=== PATIENT | female | born 1980 | race Two or more races ===

== ENCOUNTER → 2024-03-13 | Outpatient (BNVA) | payer MEDICAID, SELFPAY | END | disposition home or self-care (01) | PROVIDERS: PCP Nurse Practitioner Family; Referring Provider Nurse Practitioner Family; Visit Provider Nurse Practitioner Family | DX: Z12.39 Encounter for other screening for malignant neoplasm of breast (principal); B38.1 Chronic pulmonary coccidioidomycosis | CPT/HCPCS: 99214 ==

== ENCOUNTER → 2024-04-10 | Outpatient (BNVA) | payer MEDICAID, SELFPAY | END | disposition home or self-care (01) | PROVIDERS: PCP Nurse Practitioner Family; Referring Provider Nurse Practitioner Family; Visit Provider Nurse Practitioner Family | DX: Z71.2 Person consulting for explanation of examination or test findings (principal); E78.5 Hyperlipidemia, unspecified; E55.9 Vitamin D deficiency, unspecified; E03.9 Hypothyroidism, unspecified | CPT/HCPCS: 99213 ==

== ENCOUNTER → 2024-04-14 | Outpatient (CLI) | payer MEDICAID, SELFPAY ==
--- NOTE | 2024-04-14 15:00 | XR_ITS ---
Examination: Screening digital mammography, bilateral Computer aided detection 3-D breast Tomosynthesis, bilateral Date and time of exam: April 14, 2024 1456 hours Compared to mammograms dating to April 11, 2023 Indication: Screening Technique: Nonmagnified MLO, CC views of the breasts to been obtained, reconstructed from 3-D Tomosynthesis images. R2 computer aided detection program utilized for evaluation of suspicious masses and/or abnormal calcifications. 3-D Tomosynthesis images obtained. Findings: The breasts are heterogeneously dense, which may obscure small masses 14 mm focal asymmetry upper outer left breast Benign calcifications Impression: BI-RADS Category 0: Incomplete: Need additional imaging evaluation 14 mm focal asymmetry upper outer left breast, recommend follow-up spot tomographic views of this asymmetry as well as left breast sonography to complete the workup
== END | disposition home or self-care (01) ==
PROVIDERS: PCP Nurse Practitioner Family; Referring Provider Nurse Practitioner Family; Visit Provider Nurse Practitioner Family
DX: Z12.31 Encounter for screening mammogram for malignant neoplasm of breast (principal); R92.8 Other abnormal and inconclusive findings on diagnostic imaging of breast; N64.89 Other specified disorders of breast
CPT/HCPCS: 77063; 77067

== ENCOUNTER → 2024-04-21 | Outpatient (BNVA) | payer MEDICAID, SELFPAY | END | disposition home or self-care (01) | PROVIDERS: PCP Nurse Practitioner Family; Referring Provider Nurse Practitioner Family; Visit Provider Nurse Practitioner Family | DX: R92.8 Other abnormal and inconclusive findings on diagnostic imaging of breast (principal); Z71.2 Person consulting for explanation of examination or test findings | CPT/HCPCS: 99215 ==

== ENCOUNTER → 2024-04-23 | Outpatient (BNVA) | payer MEDICAID, SELFPAY | END | disposition home or self-care (01) | PROVIDERS: PCP Nurse Practitioner Family; Referring Provider Nurse Practitioner Family; Visit Provider Nurse Practitioner Family | DX: Z23 Encounter for immunization (principal) | CPT/HCPCS: 90471; 90686; 99213 ==

== ENCOUNTER → 2024-05-15 | Outpatient (BNVA) | payer MEDICAID, SELFPAY | END | disposition home or self-care (01) | PROVIDERS: PCP Nurse Practitioner Family; Referring Provider Nurse Practitioner Family; Visit Provider Nurse Practitioner Family | DX: N92.0 Excessive and frequent menstruation with regular cycle (principal); R10.2 Pelvic and perineal pain | CPT/HCPCS: 81001; 96372; 99215; J1885 ==

== ENCOUNTER → 2024-05-16 | Outpatient (BNVA) | payer MEDICAID, SELFPAY | END | disposition home or self-care (01) | PROVIDERS: PCP Nurse Practitioner Family; Referring Provider Nurse Practitioner Family; Visit Provider Nurse Practitioner Family | DX: Z00.01 Encounter for general adult medical examination with abnormal findings (principal); R10.2 Pelvic and perineal pain; E78.5 Hyperlipidemia, unspecified; R73.03 Prediabetes; B38.1 Chronic pulmonary coccidioidomycosis; E89.0 Postprocedural hypothyroidism; E66.3 Overweight; Z68.25 Body mass index [BMI] 25.0-25.9, adult; Z12.11 Encounter for screening for malignant neoplasm of colon | CPT/HCPCS: 99215 ==

== ENCOUNTER → 2024-07-11 | Outpatient (CLI) | payer MEDICAID, SELFPAY ==
--- NOTE | 2024-07-11 11:30 | XR_ITS ---
Examination: Pelvic ultrasound, transabdominal, complete Technique: Transabdominal ultrasound of the pelvis performed using grayscale imaging Date and time of exam: July 11, 2024 1118 hrs. Indications: Vaginal bleeding several months irregular heavy menses Findings: Uterus 15.2 cm vascular fundal mass 5.2 cm posterior uterine body mass 4.4 cm left uterine body mass 5.8 cm Endometrial stripe 0.9 cm Right ovary 3.6 cm arterial flow 21 mm follicular cyst Left ovary 2.9 cm arterial flow Impression: Multiple large vascular uterine masses, recommend transvaginal pelvic sonography follow-up
== END | disposition home or self-care (01) ==
LOC: CDIM 10:51
PROVIDERS: PCP Nurse Practitioner Family; Referring Provider Nurse Practitioner Family; Visit Provider Nurse Practitioner Family
DX: R19.09 Other intra-abdominal and pelvic swelling, mass and lump (principal)
CPT/HCPCS: 76856

== ENCOUNTER → 2024-07-14 | Outpatient (BNVA) | payer MEDICAID, SELFPAY | END | disposition home or self-care (01) | PROVIDERS: PCP Nurse Practitioner Family; Referring Provider Nurse Practitioner Family; Visit Provider Nurse Practitioner Family | DX: Z71.2 Person consulting for explanation of examination or test findings (principal); N85.9 Noninflammatory disorder of uterus, unspecified; Z85.850 Personal history of malignant neoplasm of thyroid; Z12.11 Encounter for screening for malignant neoplasm of colon; R10.2 Pelvic and perineal pain; N92.0 Excessive and frequent menstruation with regular cycle | CPT/HCPCS: 99214 ==

== ENCOUNTER → 2024-07-23 | Outpatient (BNVA) | payer MEDICAID, SELFPAY | END | disposition home or self-care (01) | PROVIDERS: PCP Nurse Practitioner Family; Referring Provider Nurse Practitioner Family; Visit Provider Nurse Practitioner Family | DX: E03.9 Hypothyroidism, unspecified (principal); N92.0 Excessive and frequent menstruation with regular cycle; R19.09 Other intra-abdominal and pelvic swelling, mass and lump; Z76.0 Encounter for issue of repeat prescription | CPT/HCPCS: 99212; G0463 ==

== ENCOUNTER → 2024-07-25 | Outpatient (BNVA) | payer MEDICAID, SELFPAY | END | disposition home or self-care (01) | PROVIDERS: PCP Nurse Practitioner Family; Referring Provider Nurse Practitioner Family; Visit Provider Nurse Practitioner Family | DX: Z12.11 Encounter for screening for malignant neoplasm of colon (principal); Z71.2 Person consulting for explanation of examination or test findings | CPT/HCPCS: 99212; G0463 ==

== ENCOUNTER → 2024-07-29 | Outpatient (BNVA) | payer MEDICAID, SELFPAY | END | disposition home or self-care (01) | PROVIDERS: PCP Nurse Practitioner Family; Referring Provider Nurse Practitioner Family; Visit Provider Nurse Practitioner Family | DX: Z71.2 Person consulting for explanation of examination or test findings (principal); N92.0 Excessive and frequent menstruation with regular cycle; N85.8 Other specified noninflammatory disorders of uterus; J30.9 Allergic rhinitis, unspecified | CPT/HCPCS: 99213 ==

== ENCOUNTER → 2024-08-20 | Outpatient (CLI) | payer MEDICAID, SELFPAY ==
--- NOTE | 2024-08-20 09:30 | XR_ITS ---
Examination: Transvaginal ultrasound of the pelvis, complete Technique: Transvaginal sonographic images pelvis performed using chun scale imaging Exam date and time: August 20, 2024 0920 hours INDICATIONS: Pelvic pain and vaginal bleeding irregular heavy menses 5 months FINDINGS: Uterus 15.5 cm endometrial stripe 16mm Anterior uterine mass with vascularity 3.2 x 2.8 x 2.4 cm Left lateral uterine body mass 8.6 x 8.1 x 6.0 cm with vascularity Ovaries obscured by bowel gas IMPRESSION: Large vascular uterine body masses Consider MRI pelvis follow-up pre and postcontrast as differential would include malignant neoplasms of the uterus.
== END | disposition home or self-care (01) ==
PROVIDERS: PCP Nurse Practitioner Family; Referring Provider Nurse Practitioner Family; Visit Provider Nurse Practitioner Family
DX: R19.09 Other intra-abdominal and pelvic swelling, mass and lump (principal)
CPT/HCPCS: 76830

== ENCOUNTER → 2024-08-27 | Outpatient (BNVA) | payer MEDICAID, SELFPAY | END | disposition home or self-care (01) | PROVIDERS: PCP Nurse Practitioner Family; Referring Provider Nurse Practitioner Family; Visit Provider Nurse Practitioner Family | DX: Z71.2 Person consulting for explanation of examination or test findings (principal); Z01.812 Encounter for preprocedural laboratory examination; R19.00 Intra-abdominal and pelvic swelling, mass and lump, unspecified site; N92.0 Excessive and frequent menstruation with regular cycle | CPT/HCPCS: 99215 ==

== ENCOUNTER 2024-09-02 09:54 | Outpatient (AMB) | payer MEDICAID, SELFPAY ==
[2024-09-02 10:11] VITALS: BP 113/73; PULSE 67; RESP 18; TEMP 36.7; O2SAT 98; BMI 28.5
--- NOTE | 2024-09-02 10:11 | AMB.OBVISIT ---
Vital Signs 09/02/24 10:11 Height 1.62 m Height Method Stated Weight 75.013 kg Weight Measurement Method Standing Scale BMI 28.5 BP 113/73 Blood Pressure Source Automatic Cuff Blood Pressure Location Left Upper Arm Position Sitting Respiration 18 Pulse 67 Pulse Source Monitor Temp 98.0 F Temp Source Oral Pulse Oximetry (%) 98 Oxygen Delivery Method Room Air Allergies/Home Meds Allergies & Medications Allergies polyethylene glycol 3350 (From Miralax) Allergy (Unknown, Verified 09/08/24 11:18) Hives SEAFOOD Allergy (Intermediate, Uncoded 09/08/24 11:18) Swelling of Lip/Tongue/Throat Medication Reconciliation diphenhydramine HCl 50 mg tablet (Benadryl Allergy) 50 mg PO Q6H PRN allergic reaction #30 tabs 04/10/24 [Rx Confirmed 09/08/24] ibuprofen 600 mg tablet 600 mg PO Q8H PRN pain #30 tabs 07/23/24 [Rx Confirmed 09/08/24] levothyroxine 150 mcg tablet 150 mcg PO QDAY #90 tabs 07/23/24 [Rx Confirmed 09/08/24] fexofenadine 180 mg tablet (Mallorie Allergy) 180 mg PO Q24H #90 tabs 07/29/24 [Rx Confirmed 09/08/24] Intake Visit Data Collection New Patient or Established: Established Patient (seen at [facility] within 3 years) Reason for Visit:: REFERRAL Seen by Clinical Staff ONLY (RN/MA): No Aircraft Electronics Technical Officer Required: Yes Aircraft Electronics Technical Officer's name/title: KISHORE BAIRES /MEDICAL ASSISTANTMarva Do You Feel Safe at Home: Yes Authorities Contacted: N/A PCP or OBGYN visit in last 3 months: Yes Date of Last PCP or OBGYN visit: 08/27/24 Hx Now: Yes Are you currently on any form of Control: No Pain Present Currently: No Pain Scale Used: Hedrick-Lieberman/Numerical Pain scale:: 0 Smoking Status Smoking Status: Never smoker Questionnaires Covid-19 Vaccine Questionnaire Has patient been vacinated for Covid-19 Have you been vacinated for Covid-19: Yes PHQ-9 PHQ-2 Over the last 2 weeks, how often have you been bothered by any of the following problems? 1. Little interest or pleasure in doing things: not at all 2. Feeling down, depressed, or hopeless: not at all Total score: 0 PHQ-9 3. Trouble falling or staying asleep, or sleeping too much: Not at all 4. Feeling tired or having little energy: Not at all 5. Poor appetite or overeating: Not at all 6. Feeling bad about yourself - or that you are a failure or have let yourself or your family down: Not at all 7. Trouble concentrating on things, such as reading the newspaper or watching television: Not at all 8. Moving or speaking so slowly that other people could have noticed? - Or the opposite - being so fidgety or restless that you have been moving around a lot more than usual: not at all 9. Thoughts that you would be better off or of hurting yourself in some way: Not at all Total score: 0 If you checked off any problems, how difficult have these problems made it for you to do your work, take care of things at home, or get along with other people?: not difficult at all Source: Developed by Drs. Panfilo Muñoz, Cristin Royal, Peter Bertrand and colleagues, with an educational ceci from [email or web address]. Depression screen completed yes Social History Living Situation History Lives With: Spouse Housing: House Tobacco History Smoking Status: Never smoker Second Hand Smoke Exposure: No Alcohol History Alcohol Intake: Never Substance Use History Substance Use: PT DENIES ANY SUBSTANCE USE. 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 The patient reports a history of increased cramping and pelvic pain for the first two days of menses, typically lasting three to four days. She has been using ibuprofen for pain relief but states it has not been very effective. Ms. Devine mentions that she underwent a procedure related to uterine myomas approximately 5 years ago, which is confirmed in her medical record as a hysteroscopy and NovaSure ablation performed on August 21, 2017. The patient reports that this was initially successful, but she is now experiencing a recurrence of symptoms. Ms. Devine's last visit to an sr. payroll manager was 5 years ago. She denies any other gynecologic complaints. The patient's menstrual cycles are described as heavy, though the exact nature and extent of the bleeding are not specified in the transcript. Medical History - Hypothyroidism - Prediabetes - Hyperlipidemia - Longstanding history of pelvic pain and menorrhagia Surgical History - Hysteroscopy and NovaSure endometrial ablation on August 21, 2017 - Unspecified procedure related to uterine myomas, approximately 5 years ago Medications and Supplements - Ibuprofen - Used for menstrual cramping and pelvic pain - Without much relief Review of Systems Genitourinary: Positive for heavy menstrual cycles, pelvic pain, increased cramping during first two days of menses. Negative for other gynecologic complaints. Laboratory, Imaging, and Diagnostic Test Results - Pelvic ultrasound (07/11/2024): - Uterus: 15.2 cm - Fundal mass: 5.2 cm, vascular - Posterior uterine body mass: 4.4 cm - Left uterine body mass: 5.8 cm - Endometrial stripe: 0.9 cm - Right ovary: 3.6 cm with arterial flow - Left ovary: 2.9 cm with arterial flow - Mammogram (04/14/2024): BIRADS category 0, needing additional imaging evaluation - Transvaginal ultrasound (08/20/2024): - Uterus: 15.5 cm - Endometrial stripe: 16 mm - Anterior uterine mass: 3.2 x 2.8 x 2.4 cm, with vascularity - Left lateral uterine body mass: 8.6 x 8.1 x 6 cm, with vascularity - Ovaries: obscured by gas Exam General Limitations: no limitations General Appearance: alert, in no apparent distress, comfortable, cooperative, healthy appearing, well developed and well groomed Head Head exam: atraumatic, normocephalic and normal inspection Eye Eye exam: Present normal appearance, PERRL and EOMI ENT ENT exam: Present normal exam, normal oropharynx and mucous membranes moist Neck Neck exam: Present normal inspection, full ROM and trachea midline Chest Chest inspection: Present normal inspection and symmetric chest wall rise Resp Respiratory exam: Present normal lung sounds bilaterally Card Cardiovascular exam: Present regular rate, normal rhythm and normal heart sounds Abdominal Abdominal exam: Present soft and normal bowel sounds Extremities Extremities exam: Present normal inspection and full ROM Back Back exam: Present normal inspection and full ROM Neuro Neurological exam: Present alert, oriented X3 and CN II-XII intact Psych Psychiatric exam: Present normal affect and normal mood Skin Skin exam: Present warm, dry, intact and normal color Office Procedures OB Clinic LOC & Office Proc's Nursing/Assessment Patient Status: Established Patient OB Clinic Nursing Assessment: Medication Reconciliation, Update PMH in EMR and Vital Signs OB Clinic Coordination of Care: Consent,records obtained, informed consent, Education Simp Pt/Fam, Lab and Imaging orders, Results/Orders obtained and Staff clarify orders Special Needs: Language special needs Established Patient Charge Established Patient Point Assignment: 80 Established Patient Point Charge: EP Level 3 (80-115) Assessment & Plan Diagnosis / Problem List (1) Menorrhagia: Status: Acute (2) Uterine mass: Status: Acute (3) Intramural leiomyoma of uterus: Status: Acute Plan Kayley Devine, a 44-year-old female with a history of hypothyroidism, prediabetes, hyperlipidemia, and longstanding pelvic pain, presents with heavy menstrual cycles and pelvic pain. Uterine fibroids with menorrhagia and pelvic pain Assessment: Patient has a significantly enlarged uterus measuring 15.5 cm (normal ~8 cm) with multiple fibroids, including a left lateral uterine body mass measuring 8.6 x 8.1 x 6 cm. She reports increased cramping and pelvic pain for the first two days of menses, typically lasting three to four days. The patient underwent hysteroscopy and NovaSure endometrial ablation in 2018, which was initially successful but appears to have lost effectiveness after approximately 3 years. Current symptoms suggest breakthrough bleeding. Given the size of the uterus, multiple fibroids, and failure of previous less invasive treatment, hysterectomy is indicated as the definitive treatment. Plan: - Perform open abdominal hysterectomy - Preserve ovaries to maintain hormonal function and reduce risk of menopausal symptoms, cardiovascular disease, and dementia - Obtain preoperative blood tests - Submit for insurance approval - Schedule surgery once approved - Provide patient education on: - Surgical procedure (open abdominal approach) - Risks, benefits, and alternatives of hysterectomy - Postoperative expectations and recovery - Follow up to review blood test results and initiate surgical process Abnormal mammogram Assessment: Patient's last mammogram from April 14, 2024, was reported as BI-RADS category 0, indicating the need for additional imaging evaluation. Plan: - Follow up on additional imaging as recommended by mammogram report - Ensure completion of further breast evaluation Cervical cancer screening Assessment: No Pap smears on record, indicating a potential gap in cervical cancer screening. Plan: - Schedule Pap smear if not contraindicated by upcoming surgery - Review cervical cancer screening history and update as necessary
== END 2024-09-02 10:41 | disposition home or self-care (01) ==
LOC: HODSOBC 09:54
PROVIDERS: PCP Nurse Practitioner Family; Referring Provider Nurse Practitioner Family; Supervising Provider Obstetrics & Gynecology; Visit Provider Obstetrics & Gynecology
DX: D25.1 Intramural leiomyoma of uterus (principal); N92.0 Excessive and frequent menstruation with regular cycle; E03.9 Hypothyroidism, unspecified; E78.5 Hyperlipidemia, unspecified; Z79.890 Hormone replacement therapy
CPT/HCPCS: 99213; G0463

== ENCOUNTER → 2024-09-08 | Outpatient (BNVA) | payer MEDICAID, SELFPAY | END | disposition home or self-care (01) | PROVIDERS: PCP Nurse Practitioner Family; Referring Provider Nurse Practitioner Family; Visit Provider Nurse Practitioner Family | DX: Z71.2 Person consulting for explanation of examination or test findings (principal); N85.8 Other specified noninflammatory disorders of uterus; N92.0 Excessive and frequent menstruation with regular cycle; R10.2 Pelvic and perineal pain | CPT/HCPCS: 99212; G0463 ==

== ENCOUNTER 2024-09-18 13:58 | Outpatient (AMB) | payer MEDICAID, SELFPAY ==
--- NOTE | 2024-09-18 14:20 | AMB.GYNCLNOT ---
Vital Signs 09/18/24 14:33 Height 1.62 m Height Method Stated Weight 74.389 kg Weight Measurement Method Standing Scale BMI 28.3 BP 137/75 H Blood Pressure Source Automatic Cuff Blood Pressure Location Left Upper Arm Position Sitting Respiration 18 Pulse 75 Pulse Source Monitor Temp 98.0 F Temp Source Oral Allergies/Home Meds Allergies & Medications Allergies polyethylene glycol 3350 (From Miralax) Allergy (Unknown, Verified 10/08/24 13:40) Hives SEAFOOD Allergy (Intermediate, Uncoded 10/08/24 13:40) Swelling of Lip/Tongue/Throat Medication Reconciliation ibuprofen 600 mg tablet 600 mg PO Q8H PRN pain #30 tabs 07/23/24 [Rx Confirmed 10/08/24] fexofenadine 180 mg tablet (Mallorie Allergy) 180 mg PO Q24H #90 tabs 07/29/24 [Rx Confirmed 10/08/24] ergocalciferol (vitamin D2) 1,250 mcg (50,000 unit) capsule 50,000 unit PO QWEEK 12 weeks #12 caps 10/08/24 [Rx] levothyroxine 150 mcg tablet 150 mcg PO QDAY #90 tabs 10/08/24 [Rx] Intake Visit Data Collection New Patient or Established: Established Patient (seen at [facility] within 3 years) Reason for Visit:: LAB RESULTS Seen by Clinical Staff ONLY (RN/MA): No Division Road Supervisor Required: Yes Division Road Supervisor's name/title: KISHORE BAIRES MA Do You Feel Safe at Home: Yes Authorities Contacted: N/A PCP or OBGYN visit in last 3 months: Yes Date of Last PCP or OBGYN visit: 09/02/24 Hx Now: No Are you currently on any form of Control: No Pain Present Currently: No Pain Scale Used: Hedrick-Lieberman/Numerical Pain scale:: 0 Smoking Status Smoking Status: Never smoker [place] history [place] History Menstrual regularity: irregular Flow: heavy Monthly: Yes Currently sexually active: No 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 1. Little interest or pleasure in doing things: not at all 2. Feeling down, depressed, or hopeless: not at all Total score: 0 PHQ-9 3. Trouble falling or staying asleep, or sleeping too much: Not at all 4. Feeling tired or having little energy: Not at all 5. Poor appetite or overeating: Not at all 6. Feeling bad about yourself - or that you are a failure or have let yourself or your family down: Not at all 7. Trouble concentrating on things, such as reading the newspaper or watching television: Not at all 8. Moving or speaking so slowly that other people could have noticed? - Or the opposite - being so fidgety or restless that you have been moving around a lot more than usual: not at all 9. Thoughts that you would be better off or of hurting yourself in some way: Not at all Total score: 0 If you checked off any problems, how difficult have these problems made it for you to do your work, take care of things at home, or get along with other people?: not difficult at all Source: Developed by Drs. Panfilo Muñoz, Cristin Royal, Peter Bertrand and colleagues, with an educational ceci from [employer]. Depression screen completed yes Social History Living Situation History Lives With: Spouse Housing: House Tobacco History Smoking Status: Never smoker Second Hand Smoke Exposure: No Alcohol History Alcohol Intake: Never Substance Use History Substance Use: PT DENIES ANY SUBSTANCE USE. Domestic Abuse History Do You Feel Safe at Home: Yes History of Present Illness HPI Narrative Presents for review of lab results. Has a history of leiomyoma of uterus, ovarian cyst, and perimenopausal symptoms with abnormal uterine bleeding that has been unresponsive to medications. She reports symptoms remain unchanged since last visit. Continues to experience pain related to fibroid, unresponsive to pain medication. Patient expresses desire to proceed with surgery, understanding she will require an open operation to remove the uterus due to fibroid and cyst. She has been informed the procedure will involve an incision similar to a with approximately one month recovery time. The patient has been waiting for an extended period for this intervention, with persistent pain significantly impacting her quality of life. She understands that even strong pain medications are ineffective due to the fibroid's lack of blood supply, preventing medication from reaching the source of pain. Exam General General Appearance: alert, in no apparent distress and healthy appearing Head Head exam: atraumatic Neck Neck exam: Present normal inspection and trachea midline Chest Chest inspection: Present normal inspection and symmetric chest wall rise External exam: Present normal external exam; Absent tenderness Neuro Neurological exam: Present oriented X3 Psych Psychiatric exam: Present normal affect and normal mood Office Procedures OB Clinic LOC & Office Proc's Nursing/Assessment Patient Status: Established Patient OB Clinic Nursing Assessment: Medication Reconciliation, Update PMH in EMR and Vital Signs OB Clinic Coordination of Care: Education Complex Pt/Fam, Consent,records obtained, informed consent, Lab and Imaging orders, Results/Orders obtained and Staff clarify orders Special Needs: Language special needs Established Patient Charge Established Patient Point Assignment: 85 Established Patient Point Charge: EP Level 3 (80-115) Assessment & Plan Diagnosis / Problem List (1) Intramural leiomyoma of uterus: Status: Acute (2) Menorrhagia: Status: Acute Plan Leiomyoma of Uterus and Ovarian Cyst: - Known history of uterine leiomyoma and ovarian cyst - Persistent symptoms, particularly pain, unresponsive to medication - Recent lab results: * Hemoglobin: 12.7 * FSH: 5.2 (indicating normal cycles, not yet in menopause) * CEA: 1.0 - Additional hormone tests to rule out tumors were negative Plan: - Proceed with open hysterectomy * Remove uterus and associated structures * Preserve ovaries to maintain hormonal function - Inform patient of surgical approach (similar to incision) - Expect one-month recovery period - Initiate insurance approval process for surgery - Fast-track surgery scheduling due to persistent pain - Provide patient with copies of lab results Perimenopausal Symptoms with Abnormal Uterine Bleeding: - Experiencing perimenopausal symptoms and abnormal uterine bleeding - FSH level of 5.2 indicates patient is not yet in menopause - Symptoms likely related to uterine leiomyoma rather than hormonal changes Plan: - Monitor hormonal status post-hysterectomy - Reassess perimenopausal symptoms after surgery
[2024-09-18 14:33] VITALS: BP 137/75; PULSE 75; RESP 18; TEMP 36.7; BMI 28.3
== END 2024-09-18 15:05 | disposition home or self-care (01) ==
LOC: HODSOBC 13:58
PROVIDERS: PCP Nurse Practitioner Family; Referring Provider Nurse Practitioner Family; Supervising Provider Obstetrics & Gynecology; Visit Provider Obstetrics & Gynecology
DX: D25.1 Intramural leiomyoma of uterus (principal); N92.4 Excessive bleeding in the premenopausal period; E03.9 Hypothyroidism, unspecified; Z87.42 Personal history of other diseases of the female genital tract; Z79.890 Hormone replacement therapy; Z91.013 Allergy to seafood; Z88.8 Allergy status to other drugs, medicaments and biological substances
CPT/HCPCS: 99213; G0463

== ENCOUNTER → 2024-10-08 | Outpatient (BNVA) | payer MEDICAID, SELFPAY | END | disposition home or self-care (01) | PROVIDERS: PCP Nurse Practitioner Family; Referring Provider Nurse Practitioner Family; Visit Provider Nurse Practitioner Family | DX: N39.0 Urinary tract infection, site not specified (principal); E55.9 Vitamin D deficiency, unspecified; Z71.2 Person consulting for explanation of examination or test findings; E89.0 Postprocedural hypothyroidism; B95.1 Streptococcus, group B, as the cause of diseases classified elsewhere | CPT/HCPCS: 99212; G0463 ==

== ENCOUNTER → 2024-10-27 | Outpatient (BNVA) | payer MEDICAID, SELFPAY | END | disposition home or self-care (01) | PROVIDERS: PCP Nurse Practitioner Family; Referring Provider Nurse Practitioner Family; Visit Provider Nurse Practitioner Family | DX: Z71.2 Person consulting for explanation of examination or test findings (principal); B95.5 Unspecified streptococcus as the cause of diseases classified elsewhere | CPT/HCPCS: 99212; G0463 ==

== ENCOUNTER 2024-12-10 11:08 | Outpatient (AMB) | payer MEDICAID, SELFPAY ==
[2024-12-10 11:48] VITALS: BP 136/80; PULSE 76; RESP 16; TEMP 36.2; O2SAT 98; BMI 27.9
--- NOTE | 2024-12-10 11:48 | AMB.GYNCLNOT ---
Vital Signs 12/10/24 11:48 Height 1.62 m Height Method Stated Weight 73.255 kg Weight Measurement Method Standing Scale BMI 27.9 BP 136/80 H Blood Pressure Source Automatic Cuff Blood Pressure Location Left Upper Arm Position Sitting Respiration 16 Pulse 76 Pulse Source Monitor Temp 97.2 F Temp Source Oral Pulse Oximetry (%) 98 Oxygen Delivery Method Room Air Allergies/Home Meds Allergies & Medications Allergies polyethylene glycol 3350 (From Miralax) Allergy (Unknown, Verified 12/11/24 07:00) Hives SEAFOOD Allergy (Intermediate, Uncoded 12/11/24 07:00) Swelling of Lip/Tongue/Throat Medication Reconciliation ibuprofen 600 mg tablet 600 mg PO Q8H PRN pain #30 tabs 07/23/24 [Rx Confirmed 12/10/24] levothyroxine 150 mcg tablet 150 mcg PO QDAY #90 tabs 10/27/24 [Rx Confirmed 12/10/24] fexofenadine 180 mg tablet (Mallorie Allergy) 180 mg PO QDAY 12/05/24 [History Confirmed 12/10/24] fluticasone propionate 50 mcg/actuation nasal spray,suspension 2 spray intranasal DAILY PRN allergy symptoms 12/05/24 [History Confirmed 12/10/24] Intake Visit Data Collection New Patient or Established: Established Patient (seen at [facility] within 3 years) Reason for Visit:: OBC Seen by Clinical Staff ONLY (RN/MA): No Raw Mill Operator Required: No Do You Feel Safe at Home: Yes Authorities Contacted: N/A PCP or OBGYN visit in last 3 months: Yes Date of Last PCP or OBGYN visit: 12/05/24 Hx Now: Yes Are you currently on any form of Control: No Pain Present Currently: Yes Pain Scale Used: Hedrick-Lieberman/Numerical Pain scale:: 0 Smoking Status Smoking Status: Never smoker Medical Office Scheduler history Medical Office Scheduler History Menstrual regularity: regular Flow: normal Monthly: Yes How many days does period last: 5 Age at menarche: 11 Menopausal: No 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 1. Little interest or pleasure in doing things: not at all 2. Feeling down, depressed, or hopeless: not at all Total score: 0 PHQ-9 3. Trouble falling or staying asleep, or sleeping too much: Not at all 4. Feeling tired or having little energy: Not at all 5. Poor appetite or overeating: Not at all 6. Feeling bad about yourself - or that you are a failure or have let yourself or your family down: Not at all 7. Trouble concentrating on things, such as reading the newspaper or watching television: Not at all 8. Moving or speaking so slowly that other people could have noticed? - Or the opposite - being so fidgety or restless that you have been moving around a lot more than usual: not at all 9. Thoughts that you would be better off or of hurting yourself in some way: Not at all Total score: 0 If you checked off any problems, how difficult have these problems made it for you to do your work, take care of things at home, or get along with other people?: not difficult at all Source: Developed by Drs. Panfilo Muñoz, Cristin Royal, Peter Bertrand and colleagues, with an educational ceci from [employer]. Depression screen completed yes Social History Living Situation History Lives With: Spouse Housing: House Tobacco History Smoking Status: Never smoker Second Hand Smoke Exposure: No Alcohol History Alcohol Intake: Never Substance Use History Substance Use: PT DENIES ANY SUBSTANCE USE. Domestic Abuse History Do You Feel Safe at Home: Yes History of Present Illness HPI Narrative Kayley Devine, a 44-year-old woman, presents for a preoperative visit prior to a total abdominal hysterectomy scheduled for tomorrow. The patient has a history of uterine leiomyoma and ovarian cyst, with persistent symptoms, particularly pain, that have been unresponsive to medication. The patient has been experiencing irregular bleeding. Her FSH level was 5.2, indicating a non-menopausal state. The decision for surgery was made due to the persistence of symptoms and their impact on her quality of life. The patient expresses some anxiety about the upcoming procedure, which is a normal reaction to impending surgery. The hysterectomy is planned to be performed through an abdominal incision, described as similar to but smaller than a incision. The patient has completed her pre-admission process and is scheduled to arrive at the hospital at 6:30 AM for her 8:30 AM surgery. Post-operatively, she is expected to stay in the hospital for approximately two nights, though some patients are discharged after one night. She is a 44-year-old female. The patient is employed, as evidenced by discussion of medical leave forms for up to 2 months. ROS: Genitourinary: Positive for irregular bleeding. Exam General General Appearance: alert, in no apparent distress and healthy appearing Head Head exam: atraumatic Neck Neck exam: Present normal inspection and trachea midline Chest Chest inspection: Present normal inspection and symmetric chest wall rise External exam: Present normal external exam; Absent tenderness Neuro Neurological exam: Present oriented X3 Psych Psychiatric exam: Present normal affect and normal mood Office Procedures OB Clinic LOC & Office Proc's Nursing/Assessment Patient Status: Established Patient OB Clinic Nursing Assessment: Medication Reconciliation, Update PMH in EMR and Vital Signs OB Clinic Coordination of Care: Education Complex Pt/Fam, Consent,records obtained, informed consent, Education Simp Pt/Fam, Lab and Imaging orders and Staff clarify orders Special Needs: Heart tones Established Patient Charge Established Patient Point Assignment: 125 Established Patient Point Charge: EP Level 4 (120-155) Assessment & Plan Diagnosis / Problem List (1) Intramural leiomyoma of uterus: Status: Acute (2) Menorrhagia: Status: Acute Plan Leiomyoma of uterus and ovarian cyst: - Persistent symptoms with pain unresponsive to medication and irregular bleeding. - FSH level 5.2 indicating non-menopausal state. - Conservative management has been ineffective, necessitating surgical intervention. Plan: - Proceed with total abdominal hysterectomy tomorrow (12/11/2024) at 8:30 AM. - Patient to arrive at 6:30 AM for pre-operative preparation. - Informed consent obtained: discussed surgical procedure, including abdominal incision. - Anticipate 2-night hospital stay post-surgery with possibility of 1-night stay if recovery progresses well. - Utilize dissolvable sutures for wound closure. - Apply waterproof dressing post-operatively. - Schedule 2-week follow-up appointment for dressing removal. - Complete disability paperwork for up to 2 months of leave. - Pre-operative instructions: ? NPO after 10:00 PM tonight, including medications. - Post-operative instructions: ? Patient may shower with waterproof dressing in place.
== END 2024-12-10 12:13 | disposition home or self-care (01) ==
LOC: HODSOBC 11:08
PROVIDERS: PCP Nurse Practitioner Family; Referring Provider Nurse Practitioner Family; Supervising Provider Obstetrics & Gynecology; Visit Provider Obstetrics & Gynecology
DX: D25.1 Intramural leiomyoma of uterus (principal); N92.0 Excessive and frequent menstruation with regular cycle; N83.209 Unspecified ovarian cyst, unspecified side; E03.9 Hypothyroidism, unspecified; Z88.8 Allergy status to other drugs, medicaments and biological substances; Z91.013 Allergy to seafood; Z79.890 Hormone replacement therapy
CPT/HCPCS: 99214; G0463

== ENCOUNTER 2024-12-11 06:25 | Inpatient (IN) | payer MEDICAID, SELFPAY ==
[2024-12-05 08:09] VITALS: BMI 29.2
[2024-12-05 09:03] LABS: Basophils # (Auto) 0.0 Thou/mm3 (0.0-0.2); Basophils % (Auto) 1 % (0-2.5); Eosinophils # (Auto) 0.5 Thou/mm3 (0.0-0.5); Eosinophils % (Auto) 7 % (0-10); Hematocrit 36.9 % (36.0-46.0); Hemoglobin 12.1 g/dL (12.0-16.0); Immature Granulocytes Auto 0.01 Thou/mm3 (0.00-0.00); Lymphocytes # (Auto) 0.8 Thou/mm3 (1.0-4.8); Lymphocytes % (Auto) 12 % (10-50); Mean Corpuscular HGB Conc 32.8 g/dl (31.0-37.0); Mean Corpuscular Hemoglobin 29.3 pg (25.0-35.0); Mean Corpuscular Volume 89 fL (80-100); Monocytes # (Auto) 0.5 Thou/mm3 (0.0-0.8); Monocytes % (Auto) 7 % (0-12); Neutrophils # (Auto) 5.1 Thou/mm3 (1.8-7.7); Neutrophils % (Auto) 74 % (37-80); Nucleated Red Blood Cell # 0.00 Thou/mm3 (0.00-0.00); Nucleated Red Blood Cell % 0 /100 WBC (0); Platelet Count 177 Thou/mm3 (140-440); RDW Standard Deviation 44.2 fL (36.4-46.3); Red Blood Count 4.13 Miln/mm3 (4.00-5.20); White Blood Count 7.0 Thou/mm3 (3.6-11.0)
[2024-12-05 09:18] LABS: COVID-19 Antigen (In-House) Negative (Negative)
[2024-12-05 09:31] LABS: HCG,Qualitative Serum Negative
[2024-12-05 09:42] LABS: Alanine Aminotransferase 8 U/L (10-49); Albumin, Serum 4.3 gm/dL (3.5-5.0); Albumin/Globulin Ratio 2.0 (1.2-2.2); Alkaline Phosphatase 67 U/L (46-116); Anion Gap 10 (7-16); Aspartate Amino Transferase 15 U/L (0-34); BUN/Creatinine Ratio 13 Ratio (12-20); Bilirubin,Total 0.7 mg/dL (0.3-1.2); Blood Urea Nitrogen 9 mg/dL (9-23); Calcium 8.8 mg/dL (8.3-10.6); Calcium (Corrected) 8.8 mg/dL (8.5-10.1); Carbon Dioxide 26.0 mMol/L (20.0-31.0); Chloride 107 mMol/L (98-107); Creatinine (Component) 0.7 mg/dL (0.6-1.3); Estimated Creatinine Clearance 97.2 mL/min (>60); Globulin 2.2 gm/dL (2.3-3.5); Glucose 92 mg/dL (74-106); Osmolality,Calculated 283 (275-295); Potassium 3.7 mMol/L (3.4-5.1); Sodium 143 mMol/L (136-145); Total Protein 6.5 gm/dL (5.7-8.2); eGFR > 60 See Note
[2024-12-11] VITALS (20 sets, daily range): BP systolic 131–185; BP diastolic 71–100; PULSE 61–80; RESP 16–20; TEMP 36.1–36.7; O2SAT 96–100; BMI 28.3
[2024-12-11] MEDS: RINGERS LACTATED 1000 ML 1,000 ML 20 ML IV (06:59)
--- NOTE | 2024-12-11 09:50 | ESOP_ITS ---
Operative Note - PERSONAL PROTECTION SPECIALIST Procedure Date of procedure: 12/11/24 Procedure Performed: Total abdominal hysterectomy with bilateral salpingectomy Indication: 44-year-old with abnormal uterine bleeding and symptomatic leiomyoma measuring 20 weeks in size. Anesthesia type: General Procedure description: Informed consent was obtained and the patient was taken to the operating room. Identity was confirmed using two patient identifiers. General anesthesia was administered, and the patient was positioned supine. The abdomen and perineum were prepped and draped in the usual sterile fashion. A Mao catheter was placed for continuous drainage. A surgical timeout was performed. A Pfannenstiel skin incision was made and carried through the subcutaneous layer. The rectus fascia was identified and incised, and the fascial incisions were extended bilaterally in the usual fashion. The rectus muscles were bluntly, and peritoneal entry was achieved bluntly as well. Upon entry into the peritoneal cavity, the uterus was noted to be grossly enlarged, extending to the level of the umbilicus. An Mukesh retractor was placed. The uterus was grasped with a double-tooth tenaculum and exteriorized through the incision. The adnexal structures were identified, and dissection was initiated on the right side, beginning with the round ligament, followed by the utero-ovarian ligament, and then the fallopian tube. Dissection was carried down the right side of the uterus in standard fashion, consistent with prior technique. The bladder flap was developed and dissected free to expose the lower uterine segment. Dissection was carried down the side of the uterus until the uterine artery was identified and sealed using the ENSEAL device. Multiple collateral vessels were noted, clamped with Alessio clamps and suture ligated using 0-Vicryl. Dissection was then carried out on the left side in the same manner. Once the level of the cervix was reached, a stab incision was made at the anterior cervicovaginal junction, and dissection was carried circumferentially using the ENSEAL device until the uterus was completely amputated. The vaginal angles were grasped with Janie clamps, and the vaginal cuff was closed using 0- Vicryl in a running locked fashion. Additional [id number] sutures were placed to control bleeding along the cuff and surrounding tissues. The pelvis was copiously irrigated, and all fluid was suctioned out. Surgicel powder was applied over dissection sites. All bowel packing and the Mukesh retractor were removed. The rectus muscle was noted to have multiple bleeding points, all of which were controlled using electrocautery. The rectus fascia was closed using 0-Vicryl in a running fashion. The subcutaneous tissue was closed using 0-Plain gut. The skin was closed using 4-0 Monocryl in a subcuticular fashion. A total of 30 cc of bupivacaine with epinephrine was injected into the abdominal wall for postoperative analgesia. A Dermabond Prineo dressing was applied along with a pressure dressing and abdominal binder. The patient was extubated and transferred to the recovery room in stable and awake condition. She tolerated the procedure well. All instrument, sponge, and lap counts were correct ?2. Specimen: uterus, left tube and right tube Estimated blood loss (ml): 200 Complications: none Surgical staff Operation Date: 12/11/24 08:30 Case Staff Anesthesiologist: Jose Juan Taylor well service derrick worker: Cris Hamm Diagnosis Discharge Diagnosis (1) Intramural leiomyoma of uterus: Status: Acute Problem List Completed Was Problem List Reviewed/Reconciled?: Yes
--- NOTE | 2024-12-11 10:02 | SUR.PHASEI ---
Arrived to recovery bay 5 via bed. Report received from Lin RICHEY and Dr. Taylor. Dr. Taylor at bedside monitoring VS, aware of high BP. States he will come back and medicated for high BP. Otherwise, she is resting with eyes open. Responding to questions and commands appropriately. Dressing to abd. C/D/I. Abdominal binder in place. Nikki pad cleand and dry at this time. Mao catheter secured to right thigh. No s/o distress at this time. No c/o pain.
--- NOTE | 2024-12-11 10:10 | SUR.PHASEI ---
Dr. Taylor at bedside medicating for BP with Hydralazine. States he will come back to monitor BP.
[2024-12-11] MEDS: HYDROmorphone 1 MG/ML PCA SYRINGE 30ML PCA (10:40)
[2024-12-11] MEDS: SODIUM CHLORIDE 0.9% 1000 ML 1,000 ML 200 ML IV ×2 (10:47→20:23)
--- NOTE | 2024-12-11 10:53 | SUR.PHASEII ---
Resting with eyes closed. No c/o pain or discomfort. No s/o distress. Nikki pad and abd. dressing remain C/D/I. miller cath draining clear yellow urine.
--- NOTE | 2024-12-11 11:00 | SUR.PHASEI ---
Assumed care of pt., received report on pt. s/p total abd. hysterectomy from Tania RICHEY, pt. is resting with eyes closed, responds to verbal commands, VSS, no c/o pain or nausea at this time, dressing to lower abd. CDI, abd. binder in place.
--- NOTE | 2024-12-11 11:30 | SUR.PHASEI ---
Pt. transferred to room 350 via bed with all of belongings, VSS, no c/o pain or nausea at this time. Dressing to abd. CDI, abdominal binder in place, no active bleeding or redness noted, miller catheter in place, IV flushed and saline locked, pt. was educated on OPERATOR ENGINEER pump and button, verbalized understanding. Mckenzie RICHEY assumed care of pt.
[2024-12-11] MEDS: ACETAMINOPHEN IVPB 1,000 MG/100 ML VIAL 250 MG IV ×3 (12:54→23:22)
[2024-12-11] MEDS: ONDANSETRON INJ 2 MG/ML INJ 2 ML 4 MG IV (16:00)
[2024-12-11] MEDS: PROMETHAZINE INJ 25 MG in SODIUM CHLORIDE 0.9% 50 ML IV (19:13)
[2024-12-12] VITALS (7 sets, daily range): BP systolic 118–140; BP diastolic 70–79; PULSE 62–82; RESP 15–20; TEMP 36.1–36.6; O2SAT 96–99
[2024-12-12] MEDS: LEVOTHYROXINE SODIUM 25 MCG TABLET 150 MCG PO (05:34)
[2024-12-12] MEDS: SODIUM CHLORIDE 0.9% 1000 ML 1,000 ML 200 ML IV ×2 (05:37→14:23)
[2024-12-12] MEDS: ACETAMINOPHEN IVPB 1,000 MG/100 ML VIAL 250 MG IV (05:37)
[2024-12-12 05:56] LABS: Basophils # (Auto) 0.0 Thou/mm3 (0.0-0.2); Basophils % (Auto) 0 % (0-2.5); Eosinophils # (Auto) 0.0 Thou/mm3 (0.0-0.5); Eosinophils % (Auto) 0 % (0-10); Hematocrit 32.5 % (36.0-46.0); Hemoglobin 10.7 g/dL (12.0-16.0); Immature Granulocytes Auto 0.03 Thou/mm3 (0.00-0.00); Lymphocytes # (Auto) 0.9 Thou/mm3 (1.0-4.8); Lymphocytes % (Auto) 8 % (10-50); Mean Corpuscular HGB Conc 32.9 g/dl (31.0-37.0); Mean Corpuscular Hemoglobin 29.5 pg (25.0-35.0); Mean Corpuscular Volume 90 fL (80-100); Monocytes # (Auto) 1.0 Thou/mm3 (0.0-0.8); Monocytes % (Auto) 8 % (0-12); Neutrophils # (Auto) 10.1 Thou/mm3 (1.8-7.7); Neutrophils % (Auto) 84 % (37-80); Nucleated Red Blood Cell # 0.00 Thou/mm3 (0.00-0.00); Nucleated Red Blood Cell % 0 /100 WBC (0); Platelet Count 193 Thou/mm3 (140-440); RDW Standard Deviation 43.4 fL (36.4-46.3); Red Blood Count 3.63 Miln/mm3 (4.00-5.20); White Blood Count 12.0 Thou/mm3 (3.6-11.0)
[2024-12-12 06:12] LABS: Anion Gap 10 (7-16); BUN/Creatinine Ratio 8 Ratio (12-20); Blood Urea Nitrogen 5 mg/dL (9-23); Calcium 7.6 mg/dL (8.3-10.6); Carbon Dioxide 26.4 mMol/L (20.0-31.0); Chloride 106 mMol/L (98-107); Creatinine (Component) 0.6 mg/dL (0.6-1.3); Estimated Creatinine Clearance 112.8 mL/min (>60); Glucose 109 mg/dL (74-106); Osmolality,Calculated 281 (275-295); Potassium 3.4 mMol/L (3.4-5.1); Sodium 142 mMol/L (136-145); eGFR > 60 See Note
[2024-12-12] MEDS: DOCUSATE SOD 100 MG CAPSULE PO (08:54)
[2024-12-12] MEDS: KETOROLAC INJ 30 MG/ML VIAL IVP ×3 (12:31→23:56)
[2024-12-12] MEDS: LACTULOSE SYRUP 20 GM/30 ML UDC 10 GM PO ×2 (14:21→21:03)
--- NOTE | 2024-12-12 16:27 | PC.SS ---
SS met with patient regarding her d/c plan. Pt is alert/oriented. Pt was admitted for [facility] [id number]. Pt confirmed demographic and contact information is correct on facesheet. Pt resides with and kids. Pt ambulates independently without assistance or DME. Pt is ok with all ADLs. Pt named her , Cholo England medical decision maker if she is unable. Patient?s choice is to return home upon d/c. Pt states she is not diabetic and is not on dialysis. will provide transportation home. D/C plan: Return home Next of Kin: Cholo England, , phone# [phone] PCP: Fe Poole in [place] Address: Correct on facesheet
--- NOTE | 2024-12-12 16:33 | ESPR_ITS ---
Documentation for date of: 12/12/24 COMMUNITY RECREATION COORDINATOR Subjective Subjective Interval history: Patient doing well this morning. Pain is adequately controlled on the current regimen. No incisional complaints, no chest pain, shortness of breath, breathing difficulties. Ambulating, tolerating p.o., Adequate UOP Exam Vital Signs Temp Pulse Resp BP Pulse Ox O2 Del Method O2 Flow Rate 97.4 F 62 19 118/76 98 Room Air 2 12/12/24 08:00 12/12/24 08:00 12/12/24 08:00 12/12/24 08:00 12/12/24 08:00 12/12/24 08:00 12/12/24 07:07 Constitutional Constitutional: no acute distress Routine HEENT Exam Head: Present normocephalic and atraumatic Eye: Present EOMI and PERRL ENT: Present mucous membranes moist Routine Neck Exam Neck: Present supple and trachea midline Routine Respiratory Exam Respiratory: Present chest non-tender, lungs clear, normal breath sounds and no resp distress Routine Cardiovascular Exam Cardiovascular: Present RRR Routine Abdominal Exam Abdominal: Present soft and normoactive bowel sounds Routine Extremities Exam Extremities: Present full ROM Routine Skin Exam Skin: Present intact and dry Routine Neurological Exam Neurological: Present alert, oriented X3 and CN II-XII intact Routine Psychiatric Exam Psychiatric: Present normal affect and normal thought process Urinary Catheter Management Cath placed during this visit: yes, but has since been removed by the nurse Removal date: 12/12/24 Removal time: 06:00 COMMUNITY RECREATION COORDINATOR - PN: Obj Data Labs 12/12/24 04:20 12/12/24 04:20 Labs: Laboratory Results - last 24 hr 12/12/24 04:20 WBC 12.0 H D RBC 3.63 L Hgb 10.7 L Hct 32.5 L MCV 90 MCH 29.5 MCHC 32.9 RDW Std Deviation 43.4 Plt Count 193 Neut % (Auto) 84 H Lymph % (Auto) 8 L [place] % (Auto) 8 Eos % (Auto) 0 Baso % (Auto) 0 Neut # (Auto) 10.1 H Lymph # (Auto) 0.9 L [place] # (Auto) 1.0 H Eos # (Auto) 0.0 Baso # (Auto) 0.0 Immature Gran # (Auto) 0.03 H Absolute Nucleated RBC 0.00 Immature Gran % 0 Nucleated RBC % 0 Sodium 142 Potassium 3.4 Chloride 106 Carbon Dioxide 26.4 Anion Gap 10 BUN 5 L Creatinine 0.6 Estim Creat Clear Calc 112.8 eGFR > 60 BUN/Creatinine Ratio 8 L Glucose 109 H Calculated Osmolality 281 Calcium 7.6 L COMMUNITY RECREATION COORDINATOR - A/P Assessment and plan (1) Intramural leiomyoma of uterus: Status: Acute Assessment and plan: POD#1 1. Continue routine post operative care 2. Transition to PO meds. 3. Encourage to ambulate 4. Anticipate discharge home tomorrow. 5. Home care instructions reviewed Postoperative Procedures: Procedures Operation Date: 12/11/24 08:30 Actual Procedure Side Surgeon p Hysterectomy, Abdominal with BSO Sadiq Crandall MD Time Spent With Patient Time: Total time spent is greater than 50% in coordination of care (as documented) at patient's floor/unit and/or counseling patient: Time with patient: less than 15 minutes
--- NOTE | 2024-12-12 17:47 | PC.NURSE ---
pt urinated at 1000 on 12/12/24 after the miller was discontinued at 0600. Pt didnt complaint of pain or discomfort.
[2024-12-12] MEDS: HYDROcodone/APAP 5/325 TABLET 2 TAB PO (19:18)
[2024-12-13] VITALS (8 sets, daily range): BP systolic 105–131; BP diastolic 69–81; PULSE 66–81; RESP 15–98; TEMP 36.4–36.8; O2SAT 96–99; BMI 28.8
[2024-12-13] MEDS: LACTULOSE SYRUP 20 GM/30 ML UDC 10 GM PO ×3 (05:12→21:03)
[2024-12-13] MEDS: KETOROLAC INJ 30 MG/ML VIAL IVP ×4 (05:14→23:53)
[2024-12-13] MEDS: LEVOTHYROXINE SODIUM 125 MCG, LEVOTHYROXINE SODIUM 25 MCG 150 MCG PO (05:15)
[2024-12-13] MEDS: DOCUSATE SOD 100 MG CAPSULE PO (09:05)
[2024-12-13] MEDS: HYDROcodone/APAP 5/325 TABLET 1 TAB PO (12:33)
[2024-12-14] VITALS: BP 125/85; PULSE 68; RESP 18; TEMP 36.6; O2SAT 97
[2024-12-14 04:00] VITALS: BP 115/65; PULSE 69; RESP 18; TEMP 36.6; O2SAT 97
[2024-12-14] MEDS: LEVOTHYROXINE SODIUM 125 MCG, LEVOTHYROXINE SODIUM 25 MCG 150 MCG PO (05:16)
[2024-12-14] MEDS: LACTULOSE SYRUP 20 GM/30 ML UDC 10 GM PO (05:16)
[2024-12-14] MEDS: KETOROLAC INJ 30 MG/ML VIAL IVP ×2 (05:16→11:04)
[2024-12-14 07:20] VITALS: PULSE 72; RESP 18; RESP 97
[2024-12-14 08:00] VITALS: BP 129/86; PULSE 67; RESP 16; TEMP 36.3; O2SAT 99
[2024-12-14] MEDS: DOCUSATE SOD 100 MG CAPSULE PO (08:21)
[2024-12-14 12:00] VITALS: BP 124/79; PULSE 67; RESP 17; TEMP 36.2; O2SAT 100
--- NOTE | 2024-12-14 13:04 | ESPR_ITS ---
Documentation for date of: 12/13/24 DIRECTOR PROJECT MANAGEMENT Subjective Subjective Interval history: C/o significant pain. TECHNICIAN AUTOMATIC discontinued, on oral meds. Flatus+, BM+. No incisional complaints. No CP/SOB/MARTINEZ. Exam Vital Signs Temp Pulse Resp BP Pulse Ox O2 Del Method O2 Flow Rate 97.2 F 67 17 124/79 100 Room Air 2 12/14/24 12:00 12/14/24 12:00 12/14/24 12:00 12/14/24 12:00 12/14/24 12:00 12/14/24 12:00 12/12/24 07:07 Constitutional Constitutional: no acute distress Routine HEENT Exam Head: Present normocephalic and atraumatic Eye: Present EOMI and PERRL ENT: Present mucous membranes moist Routine Neck Exam Neck: Present supple and trachea midline Routine Respiratory Exam Respiratory: Present chest non-tender, lungs clear, normal breath sounds and no resp distress Routine Cardiovascular Exam Cardiovascular: Present RRR Routine Abdominal Exam Abdominal: Present soft and normoactive bowel sounds Routine Extremities Exam Extremities: Present full ROM Routine Skin Exam Skin: Present intact and dry Routine Neurological Exam Neurological: Present alert, oriented X3 and CN II-XII intact Routine Psychiatric Exam Psychiatric: Present normal affect and normal thought process Urinary Catheter Management Cath placed during this visit: yes, but has since been removed by the nurse Removal date: 12/12/24 Removal time: 06:00 DIRECTOR PROJECT MANAGEMENT - PN: Obj Data Labs 12/12/24 04:20 12/12/24 04:20 DIRECTOR PROJECT MANAGEMENT - A/P Assessment and plan (1) Intramural leiomyoma of uterus: Problem details: Will adjust pain medications. Anticiate discharge home tomorrow Status: Acute Postoperative Procedures: Procedures Operation Date: 12/11/24 08:30 Actual Procedure Side Surgeon p Hysterectomy, Abdominal with BSO Sadiq Crandall MD Time Spent With Patient Time: Total time spent is greater than 50% in coordination of care (as documented) at patient's floor/unit and/or counseling patient: Time with patient: less than 15 minutes
--- NOTE | 2024-12-14 13:06 | PD.GYNPROG ---
Documentation for date of: 12/14/24 CORDAGE SALES REPRESENTATIVE Subjective Subjective Interval history: Pain control significantly better on current regimen. Ambulating, tolerating PO. Was able to shower. LOAN INTERVIEWER MORTGAGE discontinued, on oral meds. Flatus+, BM+. No incisional complaints. No CP/SOB/MARTINEZ. Exam Vital Signs Temp Pulse Resp BP Pulse Ox O2 Del Method O2 Flow Rate 97.2 F 67 17 124/79 100 Room Air 2 12/14/24 12:00 12/14/24 12:00 12/14/24 12:00 12/14/24 12:00 12/14/24 12:00 12/14/24 12:00 12/12/24 07:07 Constitutional Constitutional: no acute distress Routine HEENT Exam Head: Present normocephalic and atraumatic Eye: Present EOMI and PERRL ENT: Present mucous membranes moist Routine Neck Exam Neck: Present supple and trachea midline Routine Respiratory Exam Respiratory: Present chest non-tender, lungs clear, normal breath sounds and no resp distress Routine Cardiovascular Exam Cardiovascular: Present RRR Routine Abdominal Exam Abdominal: Present soft and normoactive bowel sounds Routine Extremities Exam Extremities: Present full ROM Routine Skin Exam Skin: Present intact and dry Routine Neurological Exam Neurological: Present alert, oriented X3 and CN II-XII intact Routine Psychiatric Exam Psychiatric: Present normal affect and normal thought process Urinary Catheter Management Cath placed during this visit: yes, but has since been removed by the nurse Removal date: 12/12/24 Removal time: 06:00 CORDAGE SALES REPRESENTATIVE - PN: Obj Data Labs 12/12/24 04:20 12/12/24 04:20 CORDAGE SALES REPRESENTATIVE - A/P Assessment and plan (1) Intramural leiomyoma of uterus: Status: Acute Assessment and plan: DC home today. Given instructions. Follow up after 2 weeks in office. Postoperative Procedures: Procedures Operation Date: 12/11/24 08:30 Actual Procedure Side Surgeon p Hysterectomy, Abdominal with BSO Sadiq Crandall MD Time Spent With Patient Time: Total time spent is greater than 50% in coordination of care (as documented) at patient's floor/unit and/or counseling patient: Time with patient: less than 15 minutes
== END 2024-12-14 14:06 | disposition home or self-care (01) | DRG 519 ==
LOC: S2W1 07:46 → S3NX 11:36
PROVIDERS: Anesthesiology; Admitting Provider Obstetrics & Gynecology; PCP Nurse Practitioner Family; Visit Provider Obstetrics & Gynecology
PROC: 0UT90ZZ Resection of Uterus, Open Approach (ICD-10-PCS; principal; 2024-12-11 08:30)
DX: D25.1 Intramural leiomyoma of uterus (principal); Z88.8 Allergy status to other drugs, medicaments and biological substances
CPT/HCPCS: 36415; 80048; 80053; 84703; 85025; 86850; 86900; 86901; 87811; A4217; A4649; J0131; J0360; J0690; J1100; J1171; J1885; J2274; J2371; J2405; J2550; J2704; J3010; J3490; J7030; J7120; A9270; J2270

== ENCOUNTER 2024-12-29 12:59 | Outpatient (AMB) | payer MEDICAID, SELFPAY ==
[2024-12-29 13:16] VITALS: BP 129/80; PULSE 73; RESP 16; TEMP 36.8; O2SAT 98; BMI 27.8
--- NOTE | 2024-12-29 13:16 | GYNCLNT_ITS ---
Vital Signs 12/29/24 13:16 Height 1.6 m Height Method Stated Weight 71.412 kg Weight Measurement Method Standing Scale BMI 27.8 BP 129/80 Blood Pressure Source Automatic Cuff Blood Pressure Location Left Upper Arm Position Sitting Respiration 16 Pulse 73 Pulse Source Monitor Temp 98.2 F Temp Source Oral Pulse Oximetry (%) 98 Oxygen Delivery Method Room Air Allergies/Home Meds Allergies & Medications Allergies polyethylene glycol 3350 (From Miralax) Allergy (Unknown, Verified 12/29/24 13:17) Hives SEAFOOD Allergy (Intermediate, Uncoded 12/29/24 13:17) Swelling of Lip/Tongue/Throat Medication Reconciliation levothyroxine 150 mcg tablet 150 mcg PO QDAY #90 tabs 10/27/24 [Rx Confirmed 12/29/24] fexofenadine 180 mg tablet (Mallorie Allergy) 180 mg PO QDAY 12/05/24 [History Confirmed 12/29/24] fluticasone propionate 50 mcg/actuation nasal spray,suspension 2 spray intranasal DAILY PRN allergy symptoms 12/05/24 [History Confirmed 12/29/24] docusate sodium 100 mg capsule (Stool Softener) 100 mg PO QDAY 30 days #30 caps 12/14/24 [Rx Confirmed 12/29/24] Intake Visit Data Collection New Patient or Established: Established Patient (seen at [facility] within 3 years) Reason for Visit:: OBC Seen by Clinical Staff ONLY (RN/MA): No Sanitizer Required: Yes Sanitizer's name/title: KISHORE BAIRES MA Do You Feel Safe at Home: Yes Authorities Contacted: N/A PCP or OBGYN visit in last 3 months: Yes Date of Last PCP or OBGYN visit: 12/14/24 Hx Now: No Are you currently on any form of Control: No Pain Present Currently: No Pain Scale Used: Hedrick-Lieberman/Numerical Pain scale:: 0 Smoking Status Smoking Status: Never smoker Legal Support Specialist history Legal Support Specialist History Menstrual regularity: regular Flow: normal Monthly: Yes Currently sexually active: No [employer] [place]: Past Medical History Past Medical History: No Hx Neurological Disorders, Yes Hx Hypothyroidism, No Hx Cardiac Disorders, No Hx Hypertension, Yes Hx Cancer, Yes Hx Blood Disorders, Yes Hx Anemia, No Hx Gastrointestinal Disorders, No Hx Renal Disease, No Hx Diabetes Mellitus Type 1, No Hx Diabetes Mellitus Type 2 and Yes Hx Hysterectomy (all but overies) Questionnaires Covid-19 Vaccine Questionnaire Has patient been vacinated for Covid-19 Have you been vacinated for Covid-19: Yes PHQ-9 PHQ-2 Over the last 2 weeks, how often have you been bothered by any of the following problems? 1. Little interest or pleasure in doing things: not at all 2. Feeling down, depressed, or hopeless: not at all Total score: 0 PHQ-9 3. Trouble falling or staying asleep, or sleeping too much: Not at all 4. Feeling tired or having little energy: Not at all 5. Poor appetite or overeating: Not at all 6. Feeling bad about yourself - or that you are a failure or have let yourself or your family down: Not at all 7. Trouble concentrating on things, such as reading the newspaper or watching television: Not at all 8. Moving or speaking so slowly that other people could have noticed? - Or the opposite - being so fidgety or restless that you have been moving around a lot more than usual: not at all 9. Thoughts that you would be better off or of hurting yourself in some way: Not at all Total score: 0 If you checked off any problems, how difficult have these problems made it for you to do your work, take care of things at home, or get along with other people?: not difficult at all Source: Developed by Drs. Panfilo Muñoz, Cristin Royal, Peter Bertrand and colleagues, with an educational ceci from [employer]. Depression screen completed yes Social History Living Situation History Lives With: Spouse Housing: House Housing Other:: Pt lives with and kids Tobacco History Smoking Status: Never smoker Second Hand Smoke Exposure: No Alcohol History Alcohol Intake: Never Substance Use History Substance Use: PT DENIES ANY SUBSTANCE USE. Domestic Abuse History Do You Feel Safe at Home: Yes History of Present Illness HPI Narrative Kayley Devine presents for a 2-week postoperative visit following a total abdominal hysterectomy performed on December 11, 2024. The patient reports that her pain is improving, noting that the first 15 days post-surgery were the most difficult. She mentions experiencing some difficulty walking, with sensations of pulling, stretching, and burning, which are impacting her mobility. The patient's surgical site is healing well, with the dressing still in place at the time of the visit. She reports some vaginal discharge, which is noted to be normal at this stage of recovery. The patient inquires about her ability to perform daily activities and is advised to avoid lifting more than 25 pounds, as well as activities such as sweeping, mopping, or moving furniture. She is cleared for driving, cooking, and walking, with instructions to start slowly and gradually increase her walking activity. She has a history of total abdominal hysterectomy on December 11, 2024. The patient's pathology report was reviewed during the visit, revealing findings consistent with leiomyoma and adenomyosis. The uterus weighed 837 grams, approximately four times the normal size. No cancer was detected in the pathology report. The patient has limited walking ability currently and is advised to start slow and increase walking after one month. She has restrictions on lifting more than 25 pounds, though driving is permitted. She is allowed to cook and walk, but advised against sweeping, mopping, or moving furniture. ROS: Positive for weakness, difficulty walking, pulling sensation, stretching sensation, burning sensation, and vaginal discharge. Exam General General Appearance: alert, in no apparent distress and healthy appearing Head Head exam: atraumatic Neck Neck exam: Present normal inspection and trachea midline Chest Chest inspection: Present normal inspection and symmetric chest wall rise External exam: Present normal external exam; Absent tenderness Neuro Neurological exam: Present oriented X3 Psych Psychiatric exam: Present normal affect and normal mood Office Procedures OBC Clinic LOC & Office Proc's Nursing/Assessment Patient Status: Established Patient OB Clinic Nursing Assessment: Medication Reconciliation, Update PMH in EMR and Vital Signs OB Clinic Coordination of Care: Education Complex Pt/Fam, Consent,records obtained, informed consent, Lab and Imaging orders, Results/Orders obtained and Staff clarify orders Established Patient Charge Established Patient Point Assignment: 85 Established Patient Point Charge: EP Level 3 (80-115) Assessment & Plan Diagnosis / Problem List (1) Intramural leiomyoma of uterus: Status: Acute Plan Status post total abdominal hysterectomy: - 2 weeks post-op from total abdominal hysterectomy performed on 12-11-2024. - Pathology report confirms leiomyoma and adenomyosis, with uterus weighing 837 grams. - Pain improving, consistent with expected postoperative course. - Incision site healing well on examination. - Normal vaginal discharge present at this stage of recovery. - Some difficulty with walking due to postoperative pain and healing process. Plan: - Continue wound care: wash incision site during bathing and allow to air dry before dressing. - Activity restrictions for 2 more weeks (4 weeks total post-op): ? Avoid lifting more than 25 pounds ? No sweeping, mopping, or moving heavy furniture ? Driving, cooking, and walking are permitted - Gradually increase walking as tolerated. - Follow-up appointment in 1 month for internal examination to assess healing of surgical site. - Reassure patient that stretching and burning sensations are normal during recovery. - Anticipate complete resolution of vaginal discharge by 4-6 weeks post-op.
== END 2024-12-29 13:30 | disposition home or self-care (01) ==
LOC: HODSOBC 12:59
PROVIDERS: Supervising Provider Obstetrics & Gynecology; Visit Provider Obstetrics & Gynecology
DX: Z48.816 Encounter for surgical aftercare following surgery on the genitourinary system (principal); E03.9 Hypothyroidism, unspecified; D25.1 Intramural leiomyoma of uterus; Z79.890 Hormone replacement therapy; Z90.710 Acquired absence of both cervix and uterus; Z91.013 Allergy to seafood; Z88.8 Allergy status to other drugs, medicaments and biological substances
CPT/HCPCS: 99213; G0463

== ENCOUNTER → 2025-02-06 | Outpatient (BNVA) | payer MEDICAID, SELFPAY | END | disposition home or self-care (01) | PROVIDERS: PCP Nurse Practitioner Family; Referring Provider Nurse Practitioner Family; Visit Provider Nurse Practitioner Family | DX: Z71.2 Person consulting for explanation of examination or test findings (principal); Z23 Encounter for immunization; R92.8 Other abnormal and inconclusive findings on diagnostic imaging of breast; E55.9 Vitamin D deficiency, unspecified | CPT/HCPCS: 90471; 90686; 99214; G0008 ==

== ENCOUNTER → 2025-03-05 | Outpatient (BNVA) | payer MEDICAID, SELFPAY | END | disposition home or self-care (01) | PROVIDERS: PCP Nurse Practitioner Family; Referring Provider Nurse Practitioner Family; Visit Provider Nurse Practitioner Primary Care | DX: R09.A2 Foreign body sensation, throat (principal); R91.8 Other nonspecific abnormal finding of lung field; R11.0 Nausea; R14.0 Abdominal distension (gaseous) | CPT/HCPCS: 99213 ==

== ENCOUNTER 2025-03-17 15:02 | Outpatient (AMB) | payer MEDICAID, SELFPAY ==
[2025-03-17 15:25] VITALS: BP 121/81; PULSE 63; RESP 18; TEMP 36.4; O2SAT 99; BMI 28.7
--- NOTE | 2025-03-17 15:25 | AMB.GYNCLNOT ---
Vital Signs 03/17/25 15:25 Height 1.6 m Height Method Stated Weight 73.595 kg Weight Measurement Method Standing Scale BMI 28.7 BP 121/81 Blood Pressure Source Automatic Cuff Blood Pressure Location Right Upper Arm Position Sitting Respiration 18 Pulse 63 Pulse Source Monitor Temp 97.6 F Temp Source Temporal Artery Scan Pulse Oximetry (%) 99 Oxygen Delivery Method Room Air Allergies/Home Meds Allergies & Medications Allergies polyethylene glycol 3350 (From Miralax) Allergy (Unknown, Verified 03/17/25 15:26) Hives SEAFOOD Allergy (Intermediate, Uncoded 03/17/25 15:26) Swelling of Lip/Tongue/Throat Medication Reconciliation levothyroxine 150 mcg tablet 150 mcg PO QDAY #90 tabs 10/27/24 [Rx Confirmed 03/17/25] fexofenadine 180 mg tablet (Mallorie Allergy) 180 mg PO QDAY 12/05/24 [History Confirmed 03/17/25] calcium 1,000 mg (as carbonate)-vitamin D3 20 mcg (800 unit) tablet 1 tab PO .q day 90 days #90 tabs 02/06/25 [Rx Confirmed 03/17/25] gabapentin 100 mg capsule 100 mg PO BID 30 days #60 caps 03/17/25 [Rx] metronidazole 0.75 % (37.5 mg/5 gram) vaginal gel 1 appful vaginal QDAY 5 days #70 grams 03/17/25 [Rx] Intake Visit Data Collection New Patient or Established: Established Patient (seen at [facility] within 3 years) Reason for Visit:: POST OP Seen by Clinical Staff ONLY (RN/MA): No Social Sciences Instructor Required: Yes Social Sciences Instructor's name/title: CINTIA BAIRES MA Do You Feel Safe at Home: Yes Authorities Contacted: N/A PCP or OBGYN visit in last 3 months: Yes Date of Last PCP or OBGYN visit: 03/05/25 Hx Now: No Are you currently on any form of Control: No Pain Present Currently: Yes Pain Location: Unable to identify (VAGINAL AREA) Pain Scale Used: Hedrick-Lieberman/Numerical Smoking Status Smoking Status: Never smoker Immunizations Flu Vaccine in the Last 12 Months: No Flu Vaccine Exclusion Criteria: No Exclusion Criteria 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 Engraver 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 1. Little interest or pleasure in doing things: not at all 2. Feeling down, depressed, or hopeless: not at all Total score: 0 PHQ-9 3. Trouble falling or staying asleep, or sleeping too much: Not at all 4. Feeling tired or having little energy: Not at all 5. Poor appetite or overeating: Not at all 6. Feeling bad about yourself - or that you are a failure or have let yourself or your family down: Not at all 7. Trouble concentrating on things, such as reading the newspaper or watching television: Not at all 8. Moving or speaking so slowly that other people could have noticed? - Or the opposite - being so fidgety or restless that you have been moving around a lot more than usual: not at all 9. Thoughts that you would be better off or of hurting yourself in some way: Not at all Total score: 0 If you checked off any problems, how difficult have these problems made it for you to do your work, take care of things at home, or get along with other people?: not difficult at all Source: Developed by Drs. Panfilo Muñoz, Cristin Royal, Peter Bertrand and colleagues, with an educational ceci from [employer]. Depression screen completed yes Social History Living Situation History Marital Status: Lives With: Spouse Housing: House Housing Other:: Pt lives with and kids Tobacco History Smoking Status: Never smoker Second Hand Smoke Exposure: No Alcohol History Alcohol Intake: Never Substance Use History Substance Use: PT DENIES ANY SUBSTANCE USE. Domestic Abuse History Do You Feel Safe at Home: Yes Office Procedures OBC Clinic LOC & Office Proc's Nursing/Assessment Patient Status: Established Patient OB Clinic Nursing Assessment: Medication Reconciliation, Update PMH in EMR and Vital Signs OB Clinic Coordination of Care: Complex Care and Chronic Disease 1-5, Education Complex Pt/Fam, Consent,records obtained, informed consent, Lab and Imaging orders, Results/Orders obtained and Staff clarify orders Miscellaneous Interventions: Pelvic Culture Established Patient Charge Established Patient Point Assignment: 120 Established Patient Point Charge: EP Level 4 (120155) Assessment & Plan Diagnosis / Problem List (1) Numbness: Status: Acute (2) Acute vaginitis: Status: Acute
== END 2025-03-17 15:28 | disposition home or self-care (01) ==
LOC: HODSOBC 15:02
PROVIDERS: Supervising Provider Obstetrics & Gynecology; Visit Provider Obstetrics & Gynecology
DX: N76.0 Acute vaginitis (principal); R20.0 Anesthesia of skin; E03.9 Hypothyroidism, unspecified; Z90.710 Acquired absence of both cervix and uterus; Z79.890 Hormone replacement therapy; Z79.899 Other long term (current) drug therapy; Z88.8 Allergy status to other drugs, medicaments and biological substances; Z91.013 Allergy to seafood
CPT/HCPCS: 99214; G0463

== ENCOUNTER 2025-03-20 13:46 | Emergency (ER) | payer MEDICAID, SELFPAY ==
--- NOTE | 2025-03-20 15:40 | PC.NURSE ---
Pt did not answer when name was called
--- NOTE | 2025-03-20 16:50 | PC.NURSE ---
Pt did not answer for second time
--- NOTE | 2025-03-23 06:38 | PD.EDADDENDU ---
Emergency Room Addendum Addendum Narrative: Pt left prior to my evaluation
== END 2025-03-20 16:52 | disposition left against medical advice (07) ==
LOC: SERX 18:38
PROVIDERS: Emergency Provider Family Medicine
DX: Z53.21 Procedure and treatment not carried out due to patient leaving prior to being seen by health care provider (principal)
CPT/HCPCS: 99281

== ENCOUNTER → 2025-03-23 | Outpatient (BNVA) | payer MEDICAID, SELFPAY | END | disposition home or self-care (01) | PROVIDERS: PCP Nurse Practitioner Family; Referring Provider Nurse Practitioner Family; Visit Provider Nurse Practitioner Family | DX: B38.2 Pulmonary coccidioidomycosis, unspecified (principal); R53.83 Other fatigue; R61 Generalized hyperhidrosis | CPT/HCPCS: 99214 ==

== ENCOUNTER → 2025-03-24 | Outpatient (BNVA) | payer MEDICAID, SELFPAY | END | disposition home or self-care (01) | PROVIDERS: PCP Nurse Practitioner Primary Care; Referring Provider Nurse Practitioner Primary Care; Visit Provider Nurse Practitioner Primary Care | DX: Z71.2 Person consulting for explanation of examination or test findings (principal) ==